=== PATIENT | female | born 1960 | race Caucasian/White ===

== ENCOUNTER 2024-04-01 08:49 | Inpatient (IN) | payer OTHER ==
[~2024-04-01] VITALS: Ht 121.9 cm; Wt 73.0 kg
[2024-04-01] VITALS (20 sets, daily range): BP systolic 86–152; BP diastolic 39–86
[2024-04-01] MEDS ORDERED: SODIUM CHLORIDE 0.9% 1,000 ML IV ONE ×3 (09:20→17:46)
[2024-04-01] MEDS ORDERED: KETOROLAC TROMETHAMINE 30 MG/ML SDV IV ONE ×2 (09:20→10:25)
[2024-04-01 09:47] LABS: BASO% 0.3 % (0-3); EOS% 0.3 % (0-8); HEMATOCRIT 42.7 % (37.0-47.0); HEMOGLOBIN 13.7 g/dl (12.0-16.0); IMMATURE GRANULOCYTES 0.3 % (0.0-5.0); LYMPH% 6.6 % (15-41); MEAN CELL VOLUME 89.5 fL CALC (80.0-100.0); MEAN CORPUSCULAR HGB 28.7 pG CALC (26.0-32.0); MEAN CORPUSCULAR HGB CONC 32.1 g/dL CAL (32.0-36.0); MONO% 8.1 % (2-13); NEUT# 16.28 thou/uL (2.00-7.15); NEUT% 84.4 % (42-76); RED BLOOD COUNT 4.77 mill/uL (4.20-5.60); RED CELL DISTRI WIDTH 13.1 % (11.5-15.5)
[2024-04-01 10:06] LABS: ALBUMIN 4.4 g/dL (3.2-5.0); BILIRUBIN, TOTAL 1.8 mg/dL (0.02-1.3); CREATININE 1.1 mg/dL (0.5-1.0); POTASSIUM 3.2 mmol/l (3.5-5.1)
[2024-04-01 10:12] LABS: URINE BILIRUBIN - DIPSTICK Negative (NEGATIVE); URINE BLOOD DIPSTICK Moderate (NEGATIVE); URINE GLUCOSE - DIPSTICK Negative (NEGATIVE); URINE KETONE Trace mg/dL (NEGATIVE); URINE PROTEIN - DIPSTICK 100 mg/dL (NEG-TRACE); URINE UROBILINOGEN - DIPSTICK 0.2 E.U./dL (0.2)
[2024-04-01 10:29] LABS: URINE COLOR Yellow; URINE LEUK ESTERASE Large (NEGATIVE); URINE NITRITE - DIPSTICK Positive (Negative)
[2024-04-01 10:31] LABS: URINE BACTERIA MANY hpf; URINE WBC 50-100 WBC/hpf (0-5)
[2024-04-01 10:32] LABS: URINE SQUAMOUS EPITHELIAL CELL FEW EPI/hpf (0-FEW)
[2024-04-01] MEDS ORDERED: cefTRIAXone SODIUM 2 GM in SODIUM CHLORIDE 0.9% 100 ML IV ONE (10:45)
[2024-04-01] MEDS ORDERED: HYDROmorphone HCL 2 MG/AMP IV ONE (12:30)
[2024-04-01] MEDS ORDERED: SODIUM CHLORIDE 0.9% 1,000 ML IV PRN (12:35)
[2024-04-01] MEDS ORDERED: HYDROmorphone HCL 2 MG/AMP IV PRN (12:35)
[2024-04-01] MEDS ORDERED: MAGNESIUM HYDROXIDE 30 ML UDC PO PRN (12:35)
[2024-04-01] MEDS ORDERED: ACETAMINOPHEN 325 MG/TAB PO PRN (12:35)
[2024-04-01] MEDS ORDERED: ONDANSETRON HCl 4 MG/2 ML SDV IV PRN (12:35)
[2024-04-01] MEDS ORDERED: XANAX1 MG PO (13:04)
[2024-04-01] MEDS ORDERED: ATORVASTATIN CA10 MG PO (13:04)
[2024-04-01] MEDS ORDERED: PROGESTERONE100 MG PO (13:05)
[2024-04-01] MEDS ORDERED: ALPRAZolam 1 MG/TAB PO PRN (15:25)
[2024-04-01] MEDS ORDERED: ONDANSETRON HCl 4 MG/2 ML SDV IV ONE (15:25)
[2024-04-01] MEDS ORDERED: LIDOCAINE HCL 2% 2ML SDV IV ONE (15:25)
[2024-04-01] MEDS ORDERED: FAMOTIDINE 10MG/ML 2ML SDV IV ONE (15:45)
[2024-04-01] MEDS ORDERED: ACETAMINOPHEN 100 ML IV ONE (15:45)
[2024-04-01] MEDS ORDERED: HYDROmorphone HCL 2 MG/AMP ONE (17:20)
[2024-04-01] MEDS ORDERED: KETOROLAC TROMETHAMINE 15 MG/ML SDV IV SCH (18:00)
[2024-04-01] MEDS ORDERED: SODIUM CHLORIDE 3,000 ML BAG FOR IRRIGATION IR ONE ×2 (19:19→19:20)
[2024-04-01] MEDS ORDERED: SODIUM CHLORIDE 1,000 ML BTL IR ONE (19:19)
[2024-04-01] MEDS ORDERED: STERILE WATER FOR IRRIGATION 1,000 ML BTL IR ONE (19:19)
[2024-04-01] MEDS ORDERED: ENOXAPARIN SODIUM 40 MG/0.4 ML SYR SC SCH (21:00)
[2024-04-01] MEDS ORDERED: PROGESTERONE PO SCH (21:00)
[2024-04-02 01:40] VITALS: BP 103/62
[2024-04-02 03:31] VITALS: BP 122/74
[2024-04-02 05:45] LABS: BASO% 0.2 % (0-3); EOS% 0.2 % (0-8); IMMATURE GRANULOCYTES 0.4 % (0.0-5.0); LYMPH% 6.2 % (15-41); MEAN CORPUSCULAR HGB 30.2 pG CALC (26.0-32.0); MEAN CORPUSCULAR HGB CONC 32.5 g/dL CAL (32.0-36.0); MONO% 6.6 % (2-13); NEUT# 21.08 thou/uL (2.00-7.15); NEUT% 86.4 % (42-76); RED BLOOD COUNT 3.74 mill/uL (4.20-5.60); RED CELL DISTRI WIDTH 13.6 % (11.5-15.5)
[2024-04-02 05:46] LABS: MAGNESIUM 1.7 mg/dL (1.6-2.3)
[2024-04-02 05:50] VITALS: BP 140/66
[2024-04-02 05:51] LABS: HEMATOCRIT 34.8 % (37.0-47.0); HEMOGLOBIN 11.3 g/dl (12.0-16.0)
[2024-04-02 05:57] LABS: ALBUMIN 3.1 g/dL (3.2-5.0); POTASSIUM 4.4 mmol/l (3.5-5.1); TOTAL PROTEIN 5.7 g/dL (6.3-8.2)
[2024-04-02 07:46] VITALS: BP 137/75
[2024-04-02] MEDS ORDERED: ATORVASTATIN CALCIUM 10 MG/TAB PO SCH (09:00)
[2024-04-02] MEDS ORDERED: HYDROmorphone HCL 2 MG/AMP IV PRN (10:20)
[2024-04-02] MEDS ORDERED: CEFEPIME HYDROCHLORIDE 2 GM in SODIUM CHLORIDE 0.9% 100 ML IV SCH (12:00)
[2024-04-02 16:02] VITALS: BP 116/62
[2024-04-02 18:01] VITALS: BP 117/64
[2024-04-02] MEDS ORDERED: DiphenhydrAMINE HCL 25 MG CPLT PO PRN (23:05)
[2024-04-03 05:02] VITALS: BP 102/54
[2024-04-03 05:40] LABS: BASO% 0.2 % (0-3); EOS% 2.4 % (0-8); HEMATOCRIT 33.4 % (37.0-47.0); HEMOGLOBIN 10.5 g/dl (12.0-16.0); IMMATURE GRANULOCYTES 0.2 % (0.0-5.0); LYMPH% 13.4 % (15-41); MEAN CELL VOLUME 94.9 fL CALC (80.0-100.0); MEAN CORPUSCULAR HGB 29.8 pG CALC (26.0-32.0); MEAN CORPUSCULAR HGB CONC 31.4 g/dL CAL (32.0-36.0); MONO% 6.7 % (2-13); NEUT# 13.85 thou/uL (2.00-7.15); NEUT% 77.1 % (42-76); RED BLOOD COUNT 3.52 mill/uL (4.20-5.60); RED CELL DISTRI WIDTH 13.9 % (11.5-15.5)
[2024-04-03 05:51] LABS: ALBUMIN 2.7 g/dL (3.2-5.0); MAGNESIUM 1.9 mg/dL (1.6-2.3); POTASSIUM 3.8 mmol/l (3.5-5.1); TOTAL PROTEIN 5.3 g/dL (6.3-8.2)
[2024-04-03 06:01] LABS: BILIRUBIN, TOTAL 0.5 mg/dL (0.02-1.3)
[2024-04-03 06:25] VITALS: BP 115/69
[2024-04-03] MEDS ORDERED: CIPROFLOXACN500 MG PO (09:46)
[2024-04-03] MEDS ORDERED: LORTAB 1010 MG PO (09:50)
== END 2024-04-03 13:00 | disposition home or self-care (01) | DRG 661 ==
LOC: ED 08:49 → ED-I 12:04 → ED 12:29 → MS2 12:30
PROVIDERS: Family Medicine; Nurse Practitioner Family; ADMIT Internal Medicine; ATTEND Internal Medicine
PROC: 0T768DZ Dilation of Right Ureter with Intraluminal Device, Via Natural or Artificial Opening Endoscopic (ICD-10-PCS; principal; 2024-04-01)
DX: N13.6 Pyonephrosis (principal); B96.1 Klebsiella pneumoniae [K. pneumoniae] as the cause of diseases classified elsewhere; E78.00 Pure hypercholesterolemia, unspecified; G47.00 Insomnia, unspecified; Z87.442 Personal history of urinary calculi
CPT/HCPCS: C1769; J0131; J0692; J0696; J1171; J1650; J1885; J2405; Q9967